=== PATIENT | male | born 1995 | race Caucasian/White ===

== ENCOUNTER 2017-07-01 11:02 | Inpatient (IN) | payer OTHER ==
--- NOTE | 2017-07-01 13:09 | CPEKG ---
Heart Rate: 51 RR Interval: 1176 P-R Interval: 172 QRSD Interval: 122 QT Interval: 456 QTC Interval: 420 P Spreckels: 78 QRS Spreckels: 90 T Wave Spreckels: 25 EKG Severity - ABNORMAL ECG - EKG Impression: SINUS RHYTHM EKG Impression: NONSPECIFIC INTRAVENTRICULAR CONDUCTION DELAY EKG Impression: MINIMAL ST DEPRESSION, ANTEROLATERAL LEADS Electronically Signed By: Deonte Alcazar 01-Jul-2017 15:55:36
[2017-07-01 13:45] LABS: ALANINE AMINOTRANSFERASE 32 IU/L (21-72); ALBUMIN 4.9 g/dL (3.5-5.0); ALKALINE PHOSPHATASE 72 IU/L (38-126); ANION GAP 16 mEq/L (8-16); ASPARTATE AMINOTRANSFERASE 57 IU/L (17-59); BILIRUBIN,TOTAL 1.4 mg/dL (0.1-1.4); BILIRUBIN-CONJUGATED 0.5 mg/dL (0.0-0.5); BILIRUBIN-UNCONJUGATED 0.9 mg/dL (0.0-1.1); CALCIUM 9.9 mg/dL (8.5-10.4); CARBON DIOXIDE 34 mEq/l (22-31); CHLORIDE 77 mEq/L (97-110); GLOMERULAR FILTRATION RATE > 60; GLUCOSE 76 mg/dL (70-100); POTASSIUM 2.9 mEq/L (3.5-5.2); SODIUM 127 mEq/L (134-144); SPECIMEN HEMOLYSIS 147
--- NOTE | 2017-07-01 14:35 | EDPHY ---
H & P Stated Complaint: Told to come into ED for low K and sod. Time Seen by Provider: 07/01/17 12:34 HPI/ROS: Chief Complaint: Laboratory abnormalities HPI: 22-year-old bleed make male presenting for evaluation after having abnormal laboratory evaluations drawn yesterday. Patient's has a history of bulimia including purging and laxative abuse. Has been admitted to the past. Last medical is admission was in October and was in a shelter house until January. He is currently under care of Dr. Yovanny Jeong, psychiatrist in [facility]. He states that he has been failing his weight contract and his psychiatrist ordered lab evaluations. Has had some generalized fatigue. No chest pain shortness of breath. States the last time he was able to eat and not pressured was a Ricky last night. ROS: 10 point Review of Systems is negative except as noted in the HPI. PMH: Bulimia Medications: Pristiq, Seroquel Social History: No smoking, no alcohol, no recreational drug use Family History: non-contributory Physical Exam: Gen: Awake, Alert, No Distress HEENT: Nose: no rhinorrhea Eyes: PERRLA, EOMI Mouth: Moist mucosa Neck: Supple, no JVD Chest: nontender, lungs clear to auscultation Heart: S1, S2 normal, no murmur Abd: Soft, non-tender, no guarding Back: no CVA tenderness, no midline tenderness Ext: no edema, non-tender Skin: no rash Neuro: CN II-XII intact, Sensation grossly intact, Strength 5/5 in bilateral upper and lower extremities - Personal History Current Tetanus Diphtheria and Acellular Pertussis (TDAP): Yes - Medical/Surgical History Hx Asthma: No Hx Chronic Respiratory Disease: No Hx Diabetes: No Hx Cardiac Disease: No Hx Renal Disease: No Hx Cirrhosis: No Hx Alcoholism: No Hx HIV/AIDS: No Hx Splenectomy or Spleen Trauma: No Other PMH: Eating disorder. - Social History Smoking Status: Never smoked Constitutional: Initial Vital Signs Temperature (C) 36.3 C 07/01/17 11:03 Heart Rate 64 07/01/17 11:03 Respiratory Rate 16 07/01/17 11:03 Blood Pressure 114/60 07/01/17 11:03 O2 Sat (%) 98 07/01/17 11:03 O2 Delivery Mode Room Air Allergies/Adverse Reactions: No Known Allergies Allergy (Unverified 07/01/17 11:07) Home Medications: Medication Instructions Recorded Pristiq 07/01/17 Seroquel 07/01/17 Medical Decision Making - Diagnostics EKG Interpretation: ECG time 1:07 p.m., sinus rhythm with a rate of 51, there is a nonspecific interventricular conduction delay. Mild ST depressions in V3 through V6. ED Course/Re-evaluation: Laboratory and ECG evaluations noted. Given the patient's bulimia and I have noticed a decline from the earlier this month. Patient is failing outpatient management. I have discussed with Dr. perry seen ED, hospitalist. She is recommending referral to the [facility] Disorder Center at [facility]. I have paged , biomedical equipment tech there for possible referral in transfer. Case discussed with Dr. Kelly, [facility] eating disorders. She believes given that the patient is using laxatives that even though his BMI is 18 he would benefit from transfer facility. Will work on intake for possible transfer to her facility for further care. She believes the patient if not willing to go should be placed on a mental health hold for further treatment. Discussed with Leandra. Intake person for [facility] eating unit. She will attempt to get preauthorization for shortness with this will likely take 1-2 days. In the meantime patient will be admitted here for further care. I have also spoken with the patient's father who is emergency physician. He is requesting that the patient be admitted to the ERCP unit that his psychiatrist is involved with. I have told him that will contact my correctional casework specialist who look in this as well. This been discussed with case management and they will investigate further. Meantime patient be admitted to hospitalist service under Dr. orlando BROOKS. - Data Points Laboratory Results: Laboratory Results 07/01/17 13:13 07/01/17 07/01/17 13:45 13:13 WBC Pending RBC Pending Hgb Pending Hct Pending MCV Pending MCH Pending MCHC Pending RDW Pending Plt Count Pending MPV Pending Neut % (Auto) Pending Lymph % (Auto) Pending Catron % (Auto) Pending Eos % (Auto) Pending Baso % (Auto) Pending Nucleat RBC Rel Count Pending Absolute Neuts (auto) Pending Absolute Lymphs (auto) Pending Absolute Monos (auto) Pending Absolute Eos (auto) Pending Absolute Basos (auto) Pending Absolute Nucleated RBC Pending Immature Gran % Pending Immature Gran # Pending Sodium 127 mEq/L L mEq/L (134-144) Potassium 2.9 mEq/L L mEq/L (3.5-5.2) Chloride 77 mEq/L L mEq/L (97-110) Carbon Dioxide 34 mEq/l H mEq/l (22-31) Anion Gap 16 mEq/L mEq/L (8-16) BUN 8 mg/dL mg/dL (7-23) Creatinine 1.0 mg/dL mg/dL (0.7-1.3) Estimated GFR > 60 Glucose 76 mg/dL mg/dL (70-100) Calcium 9.9 mg/dL mg/dL (8.5-10.4) Total Bilirubin 1.4 mg/dL D mg/dL (0.1-1.4) Conjugated Bilirubin 0.5 mg/dL mg/dL (0.0-0.5) Unconjugated Bilirubin 0.9 mg/dL mg/dL (0.0-1.1) AST 57 IU/L IU/L (17-59) ALT 32 IU/L IU/L (21-72) Alkaline Phosphatase 72 IU/L IU/L (38-126) Total Protein 8.0 g/dL g/dL (6.3-8.2) Albumin 4.9 g/dL g/dL (3.5-5.0) Specimen Hemolysis 147 Departure - Departure Disposition: [facility] Clinical Impression: Hyponatremia, Hypokalemia, Bulimia Condition: Fair Referrals: [facility] [Other] - As per Instructions
[2017-07-01] MEDS ORDERED: ONDANSETRON 4 MG/2 ML VIAL IVP PRN (15:40)
[2017-07-01] MEDS ORDERED: ONDANSETRON DISINTEGRATING 4 MG TAB PO PRN (15:40)
[2017-07-01] MEDS ORDERED: ACETAMINOPHEN 325 MG TAB PO PRN (15:40)
[2017-07-01] MEDS ORDERED: POTASSIUM CL 20 MEQ TAB PO ONE ×2 (15:45→23:40)
[2017-07-01] MEDS ORDERED: NS 1,000 ML IV SCH (15:45)
[2017-07-01] MEDS ORDERED: POTASSIUM CL 20 MEQ TAB ONE (15:51)
[2017-07-01 16:19] LABS: INR 1.05 (0.83-1.16); PROTIME(PATIENT) 13.6 SEC (12.0-15.0)
[2017-07-01 16:46] LABS: ANION GAP 11 mEq/L (8-16); CALCIUM 9.3 mg/dL (8.5-10.4); CARBON DIOXIDE 35 mEq/l (22-31); CHLORIDE 82 mEq/L (97-110); CREATININE 0.9 mg/dL (0.7-1.3); GLOMERULAR FILTRATION RATE > 60; GLUCOSE 72 mg/dL (70-100); SODIUM 128 mEq/L (134-144)
[2017-07-01 16:51] LABS: POTASSIUM 2.4 mEq/L (3.5-5.2)
--- NOTE | 2017-07-01 17:06 | GHP ---
[f rep st] HISTORY AND PHYSICAL DATE OF ADMISSION: 07/01/2017 CHIEF COMPLAINT: Weakness. HISTORY OF PRESENT ILLNESS: A 22-year-old male with a known history of both bulimia and anorexia wi th inappropriate use most recently of laxatives, who presents after having laboratories checked at [facility] outpatient psychiatrist office, found to be both hyponatremic and hypokalemic. It was recommended that he present to the emergency department. In the ED, the patient reports that he has been consu steph on average 1200 calories a day and that he has been forcefully vomiting after each intake of ca lories. In addition, he has been using 1 dose of laxatives in the evenings, says this time around he has not been using oral diuretics inappropriately. He reports drinking 3 Nalgene bottles, on avera ge about 30 ounces of water a day. Reports overall lethargy and weakness, has some dizziness with p osition changes and some sparkles in his vision that do not last very long. Describes no dysphagia but immediate vomiting after placing food in his abdomen. Denies abdominal pain. Denies constipati on. Denies dysuria. Denies hematuria. Denies any lower extremity edema. He does describe paresthes ias all over his body that seem to migrate from his hands to his upper extremities and occasionally the center of his back pain. Denies any focal weakness but overall is very weak. Additionally desc ribes cloudiness in his thought process and a difficulty to focus. The patient has historically bee n treated at multiple eating recovery centers. He was most recently released in January 2017, transit ioned from there to a hotel and ultimately to a room up here in [place] with several roommates. 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 He did transfer from an outside school and so is somewhere i n between his castillo and senior years. PAST MEDICAL HISTORY: 1. Bulimia and anorexia nervosa. 2. Depression. SOCIAL HISTORY: Negative for tobacco, alcohol, illicit drugs or marijuana. FAMILY HISTORY: Positive for psychiatric illness including depression, bipolar disorder and eating disorders in several female cousins. REVIEW OF SYSTEMS: A 10-point review of systems is negative with the exception of that reported in the HPI. PHYSICAL EXAMINATION: VITAL SIGNS: Blood pressure 111/77, heart rate 51, respiratory rate 15, satu rating 97% on room air, 36.3. GENERAL: This is a thin-appearing, young male, sitting comfortably i n bed. HEENT: Notable for dry mucous membranes. Eye exam is noted for dilation symmetrically of t he pupils during our examination. CARDIAC: Patient is bradycardic. RESPIRATORY: Good respiratory e ffort. Clear to auscultation bilaterally. GASTROINTESTINAL: Positive bowel sounds. Abdomen is thi n and nontender on palpation. MUSCULOSKELETAL: Negative for any lower extremity edema. SKIN: Nega tive for any rashes. Patient has a couple of scattered lesions on his chest that appeared to be fro m scratching. NEUROLOGIC: He is alert and oriented x3. PSYCHIATRIC: He is depressed and tangential on my examination. ASSESSMENT AND PLAN: This is a 22-year-old male, with anorexia and bulimia, presenting with electro lyte abnormalities. 1. Severe eating disorder, combination restrictor and bulimia with concurrent use of laxatives. Th e patient has had progressively worsening caloric intake, as well as electrolyte disturbances over t he course of the last month. Patient is being treated outpatient by Psychiatry and Nutrition team. He is interested and medical stabilization, as well as ongoing care. Will admit the patient with th e attempt of transfer to the medical stabilization unit at [facility] for initial medical managem ent and then likely transition to an outpatient eating support center. Will check laboratories for refeeding syndrome and, as above, cautiously hydrate and feed. 2. Acute hyponatremia. I suspect this is volume related. The patient does have a contraction alkal osis on laboratories, as well as a history of both vomiting and diarrhea related to his laxative abu se. He is taking in sounds near 100 ounces of water a day, but I suspect this is still not enough t o balance out his volume losses. We will cautiously hydrate the patient, received 600 cc of normal saline in the emergency department. Will drastically slow the rate of his rehydration to 50 cc an h our of normal saline. Check a BMP later this evening. 3. Hypokalemia. The patient had a potassium of 2.3, then 2.9. Will place the patient on protocol a fter our lab check this evening and continue replenishing his potassium levels. 4. Prophylaxis. Patient will ambulate. Will hold on Lovenox at this time as we do not have coagul opathy tests at admission. Will send an INR/PT now. 5. Diet. I have written the patient for a regular diet and encouraged him to take in calories. 6. Disposition. I expect greater than 2 midnights as the patient is medically quite ill from his e ating disorders and will require both stabilization and [facility] management [facility]. I have discussed the case with the emergency department physician, as we ll as the Director of Acute at [facility] who believe he meets criteria for transition and will b egin the process now. DATA: Sodium is 127, potassium 2.9, bicarb 34, creatinine 1.0. Liver function tests are normal. C BC is pending. EKG, which I personally reviewed and interpreted, shows sinus rhythm with a heart ra te in the 50s. No acute changes. /[id number]/MODL
[2017-07-01 20:19] LABS: % IMMATURE GRANULYOCYTES 0.2 % (0.0-1.1); ABSOLUTE IMMATURE GRANULOCYTES 0.01 10^3/uL (0.00-0.10); ADD DIFF? NO; ADD MORPH? YES; ADD SCAN? NO; ATYPICAL LYMPHOCYTE FLAG 10 (0-99); FRAGMENT RBC FLAG 0 (0-99); HEMATOCRIT 40.8 % (40.0-51.0); LEFT SHIFT FLG 0 (0-99); LIPEMIA HEMOLYSIS FLAG 100 (0-99); MEAN CELL VOLUME 81.8 fL (81.5-99.8); MEAN PLATELET VOLUME 10.7 fL (8.7-11.7); PLATELET CLUMPS FLAG 0 (0-99); PLATELET COUNT 200 10^3/uL (150-400); RED BLOOD CELL COUNT 4.99 10^6/uL (4.40-6.38); RED CELL DISTRIBUTION WIDTH 11.2 % (11.5-15.2)
[2017-07-01] MEDS ORDERED: QUEtiapine FUMARATE 100 MG TAB PO SCH (21:00)
[2017-07-01 21:27] LABS: ECHINOCYTES 1+; PLATELET ESTIMATE ADEQUATE (ADEQ)
[2017-07-02 05:20] LABS: % IMMATURE GRANULYOCYTES 0.2 % (0.0-1.1); ABSOLUTE IMMATURE GRANULOCYTES 0.01 10^3/uL (0.00-0.10); ADD DIFF? NO; ADD MORPH? NO; ADD SCAN? NO; ATYPICAL LYMPHOCYTE FLAG 20 (0-99); FRAGMENT RBC FLAG 0 (0-99); HEMATOCRIT 38.9 % (40.0-51.0); HEMOGLOBIN 14.6 g/dL (13.7-17.5); LEFT SHIFT FLG 0 (0-99); MEAN CELL HEMOGLOBIN 31.3 pg (27.9-34.1); MEAN CELL HEMOGLOBIN CONCENTR. 37.5 g/dL (32.4-36.7); MEAN CELL VOLUME 83.3 fL (81.5-99.8); MEAN PLATELET VOLUME 10.6 fL (8.7-11.7); PLATELET CLUMPS FLAG 0 (0-99); PLATELET COUNT 199 10^3/uL (150-400); RED BLOOD CELL COUNT 4.67 10^6/uL (4.40-6.38); RED CELL DISTRIBUTION WIDTH 11.4 % (11.5-15.2)
[2017-07-02 05:22] LABS: LIPEMIA HEMOLYSIS FLAG 100 (0-99)
[2017-07-02 05:34] LABS: ANION GAP 10 mEq/L (8-16); CALCIUM 9.1 mg/dL (8.5-10.4); CARBON DIOXIDE 33 mEq/l (22-31); CHLORIDE 92 mEq/L (97-110); CREATININE 0.9 mg/dL (0.7-1.3); GLOMERULAR FILTRATION RATE > 60; GLUCOSE 68 mg/dL (70-100); SODIUM 135 mEq/L (134-144)
[2017-07-02] MEDS ORDERED: NS 250 ML IV ONE (06:15)
[2017-07-02] MEDS ORDERED: POTASSIUM CL 20 MEQ TAB PO ONE (08:09)
[2017-07-02 08:11] VITALS: PULSE 64
--- NOTE | 2017-07-02 08:59 | PDIAF ---
- Diagnosis Diagnosis: severe anorexia/bulemia Code Status: Full Code - Medication Management Discharge Medications: Medications to Continue on Transfer Desvenlafaxine [Desvenlafaxine ER] 100 mg PO DAILY 07/01/17 [Last Taken 09:00] Multivitamins [Multivitamin (*)] 1 tab PO DAILY 07/01/17 [Last Taken 07/01/17 09 :00] QUEtiapine FUMARATE [Seroquel 100 mg (*)] 150 mg PO HS 07/01/17 [Last Taken 22:00] Discharge Medications: Refer to the Discharge Home Medication list for PRN reason. - Orders Services needed: Registered Nurse, Master Wellness Nurse, Physical Therapy, Occupational Therapy, Speech Language Pathologist Diet Recommendation: no restrictions on diet Diet Texture: Regular Texture Diet - Labs/Radiology BMP Date: 07/03/17 (daily for electrolyte repletion) - Follow Up Care Current Providers and Referrals: [facility] [Other] - As per Instructions
[2017-07-02] MEDS ORDERED: DESVENLAFAXINE 100 MG PO SCH (09:00)
[2017-07-02] MEDS ORDERED: MULTIVITAMINS 1 EACH TAB PO SCH (09:00)
[2017-07-02 11:11] VITALS: BP 92/53; RESP 12; TEMP 98.2; O2SAT 94
[2017-07-02 12:45] LABS: ANION GAP 7 mEq/L (8-16); CALCIUM 9.2 mg/dL (8.5-10.4); CARBON DIOXIDE 33 mEq/l (22-31); CHLORIDE 96 mEq/L (97-110); CREATININE 0.9 mg/dL (0.7-1.3); GLOMERULAR FILTRATION RATE > 60; GLUCOSE 73 mg/dL (70-100); POTASSIUM 3.6 mEq/L (3.5-5.2); SODIUM 136 mEq/L (134-144)
--- NOTE | 2017-07-02 14:04 | ASDISCHSUM ---
Discharge Information Plan Status:Home with No Needs Medically Cleared to Leave: Discharge Date: CM D/C Disposition:Home, Routine, Self-Care ADT D/C Disposition:Other Rehab, Not [facility] Projected Discharge Date: Transportation at D/C:Family Discharge Delay Reason: Follow-Up Date: Discharge Slot: Final Diagnosis: Placement Information Patient Contact Information Contact Name:CLAUDIA Relationship:Mother Address: Home Phone: City: Alternate Phone: State/[place] Code: Email: Financial Information Financial Class:HMO and PPO Plans Primary Plan Desc:[employer] PPO POS HMO SIG ADM Primary Plan Number:[id number] Secondary Plan Desc: Secondary Plan Number: Assessment Information Intervention Information
--- NOTE | 2017-07-02 14:16 | ASMTCMCOM ---
CM Note CM Note Notes: Pt. is a 22-year-old man admitted with electrolyte abnomalities due to hx. of bulemia, anorexia, laxative use. Hx. of depression. Pt. on a medical detainer. Pt. has an outpatient psychiatrist - Tracey Jeong MD . Pt. w/ hx. of multiple eating disorder center inpatient stays and years of attempting treatment. Most recent stay per notes was 01/2017. 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 Initially plan involved inpatient [facility] stay at eating disorders unit, then possible [facility] ([facility]) where Pt. has been numerous times. Pt. decided to d/c home and f/u w/ psychiatrist Tracey Jeong MD and enter outpatient day program at [facility] in [place] . RN states Pt.'s labs are good enough to d/c Pt. Hospitalist to write in her note to clear detainer. SWer gave Pt. information on [facility] so that he has their number and also [facility]'s 24/hour hotline for mental health support. Pt. to d/c today independently. Date Signed: 07/02/2017 02:15 PM Electronically Signed By:Bernie Duarte
--- NOTE | 2017-07-02 17:45 | GDS ---
[f rep st] DISCHARGE SUMMARY DISCHARGE DIAGNOSES: 1. Severe anorexia/bulimia. 2. Hyponatremia secondary to eating disorders. 3. Hypokalemia secondary to eating disorders. 4. Depression. 5. Sinus bradycardia secondary to anorexia. HISTORY OF PRESENT ILLNESS: This is a 22-year-old male with well-known severe anorexia/bulimia. Th e patient has had multiple outpatient stays for medical stabilization, is followed closely by Milton villalba. HOSPITAL COURSE BY ISSUE: 1. Acute hyponatremia. Patient presented with a serum sodium 127 with known severe eating disorder s. Will very carefully fluid resuscitate with normal saline. Patient received 50 cc an hour of NS and had correction of his serum sodium from 127-136 at the time of disposition. Symptomatically, ma rkedly improved with better energy and clear thought process. 2. Hypokalemia, presumed from dietary restriction, laxative abuse concurrently. The patient had ag gressive electrolyte repletion with improvement in his potassium from 2.4-3.6 at the time of disposi tion. The patient has been connected with outpatient resources for intensive treatment program. He will initiate care day after disposition and have ongoing care provided by his psychiatry nutrition team. We have asked the patient to have labs performed on Wednesday by the outpatient providers for h is 1st recheck of electrolytes in ongoing monitoring by his psychiatric staff. PENDING STUDIES: At the time of this dictation are none. FOLLOWUP APPOINTMENTS: Include with his PCP as well as this intensive outpatient eating disorder pr [place]. Patient has additionally been given resources for the [facility] and [facility]. TIME SPENT: I spent greater than 30 minutes in the planning and coordination of this discharge. /[id number]/MODL
[2017-07-02] MEDS ORDERED: QUEtiapine FUMARATE 100 MG TAB PO SCH (21:00)
== END 2017-07-02 15:57 | disposition home or self-care (01) | DRG 641 ==
LOC: F3E 16:55
PROVIDERS: ADMIT Hospitalist; ATTEND Hospitalist
DX: E87.6 Hypokalemia (principal); E87.1 Hypo-osmolality and hyponatremia; F50.2 Bulimia nervosa; F50.02 Anorexia nervosa, binge eating/purging type; F32.9 Major depressive disorder, single episode, unspecified